=== PATIENT | female | born 1935 | race Two or more races ===

== ENCOUNTER 2017-11-21 11:31 | Outpatient (CLI) | payer MEDICARE, BC ==
[~2017-11-21 11:31] MED LIST: ALIGN4 M1 PO; ALLEGRA ALLERGY60 M1 PO; CALCIUM 500 MG1 EACH PO; DEXILANT60 MG ORAL; LEXAPRO10 MG ORAL; MAGNESIUM400 M2 PO; MULTIVITAMINS1 EAC2 ORAL; PANTOPRAZOLE SO40 MG ORAL; SYMBICORT 1601 PUFFS INH; VITAMIN D400 INTLU ORAL
--- NOTE | 2017-11-22 09:41 | GI Progress Note ---
Assessment/Plan Problems: (1) Constipation ICD Codes: K59.00 - Constipation, unspecified SNOMED: 17854966 (2) Abdominal distension (gaseous) ICD Codes: R14.0 - Abdominal distension (gaseous) SNOMED: 038687828 Status: stable Status Narrative Seen with Dr. Crawley. Assessment/Plan linzess 72mcg VSL #3 OB stool uncollected consider xifaxan if no improvement RTC x 1 month Subjective Subjective abdominal bloating constipation Objective General Appearance: WD/WN, no apparent distress, alert Cardiovascular: normal rate Respiratory/Chest: normal breath sounds, no respiratory distress Abdominal Exam: normal bowel sounds, non tender, soft Extremities: normal range of motion, non-tender Dori Pablo N.P. November 22, 2017 09:41
== END 2017-11-21 12:05 | disposition home or self-care (01) ==
LOC: PAN 11:31
DX: K59.00 Constipation, unspecified (principal); R14.0 Abdominal distension (gaseous)
CPT/HCPCS: 99212

== ENCOUNTER 2017-11-23 12:12 | Outpatient (CLI) | payer MEDICARE, BC | END 2017-11-23 15:12 | disposition home or self-care (01) | LOC: PAN 12:12 | DX: D64.9 Anemia, unspecified (principal) | CPT/HCPCS: 82270 ==